=== PATIENT | male | born 1985 | race Caucasian/White ===

== ENCOUNTER 2016-08-02 19:58 | Emergency (ER) | payer OTHER ==
[~2016-08-02] VITALS: Ht 177.8 cm; Wt 104.3 kg
[~2016-08-02 19:58] MED LIST: BACTRIM DS 8001 TA1 PO; KEFLEX500 MG PO; NAPROSYN500 MG PO; PREDNISONE10 MG PO
[2016-08-02] MEDS ORDERED: ZANTAC 150150 MG PO (22:35)
[2016-08-02] MEDS ORDERED: BENADRYL ALLERG25 M5 PO (22:36)
== END 2016-08-02 22:47 | disposition home or self-care (01) ==
LOC: ED 19:58
DX: L30.9 Dermatitis, unspecified (principal); R03.0 Elevated blood-pressure reading, without diagnosis of hypertension

== ENCOUNTER 2021-09-12 19:03 | Emergency (ER) | payer OTHER ==
[~2021-09-12] VITALS: Ht 177.8 cm; Wt 108.9 kg
[~2021-09-12 19:03] MED LIST changes: +BENADRYL ALLERG25 M5 PO; +ZANTAC 150150 MG PO
[2021-09-12] MEDS ORDERED: NAPROSYN500 MG PO (21:30)
== END 2021-09-12 21:48 | disposition home or self-care (01) ==
LOC: ED 19:03
DX: S93.402A Sprain of unspecified ligament of left ankle, initial encounter (principal); Z79.899 Other long term (current) drug therapy; X50.1XXA Overexertion from prolonged static or awkward postures, initial encounter; Y93.89 Activity, other specified; Y92.89 Other specified places as the place of occurrence of the external cause; Y99.0 Civilian activity done for income or pay